=== PATIENT | male | born 2000 | race Caucasian/White ===

== ENCOUNTER 2025-02-25 11:57 | Day surgery (SDC) | payer OTHER ==
[~2025-02-25] VITALS: Ht 175.3 cm; Wt 76.8 kg
[~2025-02-25 11:57] MED LIST: Bupivacaine 0.5% W/EPI 1:200000 SDV 30 ML Vial ONE
[2025-02-25] MEDS ORDERED: CeFAZolin Sodium 2,000 MG VIAL ONE (12:14)
[2025-02-25] MEDS ORDERED: MELO7.5 PO (12:23)
[2025-02-25] MEDS ORDERED: Rocuronium Bromide 10 MG/ML 5ML Injection IV ONE (12:55)
[2025-02-25] MEDS ORDERED: FentaNYL Citrate 50 MCG/ML 2 ML Injection ONE ×2 (12:55→14:44)
[2025-02-25] MEDS ORDERED: Ondansetron HCl 2 MG / ML 2ML Vial ONE (12:55)
[2025-02-25] MEDS ORDERED: Dexamethasone Sod Phos 10 MG/ML 1ML VIAL ONE (12:55)
[2025-02-25] MEDS ORDERED: Midazolam HCl 1MG / ML 2ML Vial ONE (12:55)
--- NOTE | 2025-02-25 13:25 | NUR ---
02/25/25 1325 Leta López TIME OUT PERFORMED AT BEDSIDE WITH DR HAMLIN AT 1306. BLOCK STARTED AT 1312 AND ENDED AT 1315. CONTINUOUS SPO2 AND HR MONITORING IN PLACE T/O PROCEDURE. PT TOLERATED PROCEDURE WELL.
[2025-02-25] MEDS ORDERED: Sugammadex Sodium 200 MG/2ML SDV (100 MG/ML) ONE (13:34)
[2025-02-25] MEDS ORDERED: HYDROcodone 5-APAP 325 TAB ONE (15:19)
== END 2025-02-25 15:53 | disposition home or self-care (01) ==
LOC: ORSCSDS 11:57
PROVIDERS: Podiatrist Foot & Ankle Surgery
PROC: 0QSG04Z Reposition Right Tibia with Internal Fixation Device, Open Approach (ICD-10-PCS; principal; 2025-02-25 14:00)
DX: S82.51XA Displaced fracture of medial malleolus of right tibia, initial encounter for closed fracture (principal); W18.30XA Fall on same level, unspecified, initial encounter; F17.290 Nicotine dependence, other tobacco product, uncomplicated
CPT/HCPCS: A6253; A9270; C1713; J0690; J1100; J2250; J2405; J2704; J3010; J7120